=== PATIENT | female | born 1985 | race Caucasian/White ===

== ENCOUNTER 2019-09-04 05:50 | Emergency (ER) | payer MEDICAID ==
[2019-09-04] MEDS ORDERED: PREDNISONE 20 MG TAB PO ONE (06:07)
--- NOTE | 2019-09-04 06:09 | Emergency Department Record ---
History of Present Illness - General Chief complaint: Hives Stated complaint: HIVES ALL OVER Time Seen by Provider: 09/04/19 05:56 Source: Patient Mode of Arrival: Ambulatory Limitations: No limitations - History of Present Illness Initial comments: 34 yo female presents to ED for evaluation of diffuse itching/hives that began approximately 24 hours ago. Patient reports starting Wellbutrin 2 weeks ago but reports taking the medication previously without a reaction. Patient denies any new foods, detergents, or other soaps. Patient denies any wheezing, throat swelling, or difficulty in breathing. MD complaint: Rash Onset/Timin -: Hour(s) Location: Generalized Severity: Moderate Quality: Other Consistency: Constant, Getting worse Improves with: Cold therapy Context: New medication Associated symptoms: Itching - Related Data Previous Rx's Medication Instructions Recorded Cimetidine [Tagamet] 300 mg PO DAILY #15 tab 09/04/19 Prednisone [Prednisone 20Mg] 20 mg PO TID #12 tab 09/04/19 Allergies Allergy/AdvReac Type Severity Reaction Status Date / Time No Known Allergies Allergy Unverified 11/07/18 14:58 Travel Screening - Travel/Exposure Within Last 30 Days Have you traveled within the last 30 days?: No - Travel Symptoms Symptom Screening: None Review of Systems Constitutional: Denies: Chills, Fever, Malaise, Night sweats Eyes: Denies: Eye discharge, Eye pain ENT: Denies: Congestion, Ear pain, Epistaxis Respiratory: Denies: Cough, Dyspnea Cardiovascular: Denies: Chest pain, Dyspnea on exertion Endocrine: Denies: Fatigue, Heat or cold intolerance Gastrointestinal: Denies: Abdominal pain, Nausea, Vomiting Genitourinary: Denies: Incontinence, Retention Musculoskeletal: Denies: Back pain, Other Skin: Reports: Rash. Denies: Bruising, Change in color Neurological: Denies: Abnormal gait, Confusion, Headache, Seizure Psychiatric: Denies: Anxiety Hematological/Lymphatic: Denies: Anemia, Blood Clots Past Medical History - SOCIAL HISTORY Smoking Status: Light tobacco smoker (<10/day) Alcohol Use: Occasional Drug Use: None - RESPIRATORY Hx Respiratory Disorders: No - CARDIOVASCULAR Hx Cardio Disorders: No - NEURO Hx Neuro Disorders: No - GI Hx GI Disorders: No - Hx Genitourinary Disorders: No - ENDOCRINE Hx Endocrine Disorders: No - MUSCULOSKELETAL Hx Musculoskeletal Disorders: No - PSYCH Hx Psych Problems: Yes Hx Depression: Yes - HEMATOLOGY/ONCOLOGY Hx Hematology/Oncology Disorders: No Family Medical History Any Significant Family History?: No Family Hx Comment (NOT TO BE USED IN PLACE OF ITEMS BELOW): denies Physical Exam - General General Appearance: Alert, Oriented x3, Cooperative, Mild distress Limitations: No limitations - Head Head exam: Atraumatic, Normocephalic, Normal inspection Head exam detail: negative: Abrasion, Contusion, Saunders's sign, General tenderness, Hematoma, Laceration - Eye Eye exam: Other (Hives are present félix-orbitally oin examination). negative: Conjunctival injection, Periorbital swelling, Periorbital tenderness, Scleral icterus - ENT Ear exam: negative: Auricular hematoma, Auricular trauma Nasal Exam: negative: Active bleeding, Discharge, Dried blood, Foreign body Mouth exam: negative: Drooling, Laceration, Muffled voice, Tongue elevation - Neck Neck exam: Normal inspection. negative: Meningismus, Tenderness - Respiratory Respiratory exam: Normal lung sounds bilaterally. negative: Rales, Respiratory distress, Rhonchi, Stridor - Cardiovascular Cardiovascular Exam: Regular rate, Normal rhythm, Normal heart sounds - GI/Abdominal GI/Abdominal exam: Soft. negative: Rebound, Rigid, Tenderness - Rectal Rectal exam: Deferred - exam: Deferred - Extremities Extremities exam: Normal inspection. negative: Pedal edema, Tenderness - Back Back exam: Denies: CVA tenderness (R), CVA tenderness (L) - Neurological Neurological exam: Alert, Normal gait, Oriented X3 - Psychiatric Psychiatric exam: Normal affect, Normal mood - Skin Skin exam: Erythema, Urticaria Type of lesion: Rash Distribution of rash: Generalized Description of rash: Urticarial Course Vital Signs 09/04/19 05:55 Temperature 97.5 F L Pulse Rate [ 65 Pulse Ox Probe] Respiratory 16 Rate Blood Pressure 115/59 [Left Arm] Pulse Ox 100 - Reevaluation(s) Reevaluation #1: 09/04/19 06:12 Patient was seen and examined Presents to ED for evaluation of diffuse urticaria No evidence for systemic reaction on examination No airway/pulmonary involvement on examination Will treat with Prednisone and Tagamet as directed. Patient appears stable for discharge at this time. Disposition Disposition: Discharge Clinical Impression: Urticaria Disposition: Home, Self-Care Condition: (2) Stable Instructions: Urticaria (ED) Additional Instructions: Return to ED if your symptoms worsen or if you have any concerns. Prednisone, Tagamet as directed. Follow-up with your family doctor in 3-5 days as directed. Prescriptions: Prednisone [Prednisone 20Mg] 20 mg PO TID #12 tab Cimetidine [Tagamet] 300 mg PO DAILY #15 tab Forms: Patient Portal Access Time of Disposition: 06:08 Quality - Quality Measures Quality Measures: N/A - Blood Pressure Screening Does Patient Have Any of the Following: No Blood Pressure Classification: Normal BP Reading Systolic Measurement: 115 Diastolic Measurement: 59 Screening for High Blood Pressure: < Normal BP, F/U Not Required > [G8783]
== END 2019-09-04 06:15 | disposition home or self-care (01) ==
LOC: ER 05:50
DX: L50.8 Other urticaria (principal); F17.210 Nicotine dependence, cigarettes, uncomplicated
CPT/HCPCS: 99283; J7512